=== PATIENT | female | born 1975 | race Two or more races ===

== ENCOUNTER 2019-09-16 16:25 | Emergency (ER) | payer OTHER ==
[~2019-09-16] VITALS: Ht 167.6 cm; Wt 66.0 kg
[2019-09-16 16:27] VITALS: BP 159/60
== END 2019-09-16 18:45 | disposition home or self-care (01) ==
LOC: ER 16:25
DX: U07.1 COVID-19 (principal); R06.02 Shortness of breath
CPT/HCPCS: 81025; 99283